=== PATIENT | male | born 1950 | race Caucasian/White ===

== ENCOUNTER 2016-08-02 21:24 | Inpatient (IN) | payer MEDICARE, OTHER ==
[~2016-08-02] VITALS: Ht 182.9 cm; Wt 80.1 kg
[2016-08-02 21:29] VITALS: BP 133/79; PULSE 89; RESP 18; TEMP 98.7; O2SAT 96
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
[2016-08-02] MEDS ORDERED: SODIUM CHLORIDE 0.9% FLUSH 5 ML FLUSH IVF PRN (21:45)
[2016-08-02] MEDS ORDERED: TETANUS/DIPHTHERIA TOXOID ADULT 0.5 ML VIAL IM ONE (22:15)
[2016-08-02] MEDS ORDERED: LIDOCAINE 1%/EPINEPHrine 1:100,000 SOLN 20 ML VIAL INFIL ONE (22:30)
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
[2016-08-02 23:02] LABS: AUTOMATED NEUTROPHIL # 10.1 TH/MM3 (1.8-7.7); BASOPHIL % 0.4 % (0.0-2.0); EOSINOPHIL # 0.1 TH/MM3 (0-0.4); EOSINOPHIL % 0.4 % (0.0-4.0); HEMATOCRIT 39.2 % (39.0-51.0); HEMO FLAGS DIFF FINAL; LYMPH % 13.1 % (9.0-44.0); LYMPHOCYTE # 1.7 TH/MM3 (1.0-4.8); MEAN CELL VOLUME 91.1 FL (80.0-100.0); MEAN CORPUSCULAR HEMOGLOBIN 31.6 PG (27.0-34.0); MEAN CORPUSCULAR HGB CONC 34.6 % (32.0-36.0); MONO % 5.5 % (0.0-8.0); NEUT % 80.6 % (16.0-70.0); PLATELET COUNT 209 TH/MM3 (150-450); RED CELL DISTRIBUTION WIDTH 14.1 % (11.6-17.2); WHITE BLOOD COUNT 12.6 TH/MM3 (4.0-11.0)
[2016-08-02 23:22] LABS: APTT (PATIENT) 26.6 SEC (24.3-30.1); PROTHROMBIN TIME - PATIENT 11.4 SEC (9.8-11.6)
[2016-08-02 23:31] LABS: BICARBONATE 29.5 MEQ/L (21.0-32.0); POTASSIUM 3.6 MEQ/L (3.5-5.1)
[2016-08-02] MEDS ORDERED: ONDANSETRON HCL 4 MG/2 ML VIAL IV PUSH ONE ×2 (23:45)
[2016-08-02] MEDS ORDERED: MORPHINE SULFATE 4 MG/ML INJ IV PUSH ONE (23:45)
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
[2016-08-03] MEDS ORDERED: ONDANSETRON HCL 4 MG/2 ML VIAL IVP PRN
[2016-08-03] MEDS ORDERED: BISACODYL 10 MG SUPP PR PRN
[2016-08-03] MEDS ORDERED: MORPHINE SULFATE 4 MG/ML INJ IV PRN
[2016-08-03] MEDS ORDERED: ACETAMINOPHEN 325 MG TAB PO PRN
[2016-08-03] MEDS ORDERED: SODIUM CHLORIDE 0.9% FLUSH 5 ML FLUSH FLUSH PRN
[2016-08-03] MEDS: SODIUM CHLOR 0.9% 1000 ML INJ 1,000 ML IV SCH ×4 (03:19→18:35)
[2016-08-03 06:30] LABS: AUTOMATED NEUTROPHIL # 14.3 TH/MM3 (1.8-7.7); BASOPHIL % 0.1 % (0.0-2.0); HEMO FLAGS DIFF FINAL; LYMPH % 6.7 % (9.0-44.0); LYMPHOCYTE # 1.1 TH/MM3 (1.0-4.8); MEAN CELL VOLUME 91.9 FL (80.0-100.0); MEAN CORPUSCULAR HEMOGLOBIN 31.6 PG (27.0-34.0); MEAN CORPUSCULAR HGB CONC 34.4 % (32.0-36.0); MONO % 4.6 % (0.0-8.0); NEUT % 88.6 % (16.0-70.0); PLATELET COUNT 231 TH/MM3 (150-450); RED BLOOD COUNT 3.92 MIL/MM3 (4.50-5.90); WHITE BLOOD COUNT 16.2 TH/MM3 (4.0-11.0)
[2016-08-03 07:12] LABS: ALKALINE PHOSPHATASE 74 U/L (45-117); ALT (GPT) 18 U/L (12-78); ANION GAP 6 MEQ/L (5-15); AST (GOT) 18 U/L (15-37); BICARBONATE 31.8 MEQ/L (21.0-32.0); BLOOD UREA NITROGEN 12 MG/DL (7-18); CHLORIDE 95 MEQ/L (98-107); GLOMERULAR FILTRATION RATE 79 ML/MIN (>89); POTASSIUM 3.4 MEQ/L (3.5-5.1); SODIUM (NA) 133 MEQ/L (136-145); TOTAL BILIRUBIN ADULT 0.6 MG/DL (0.2-1.0)
[2016-08-03] MEDS: SODIUM CHLORIDE 0.9% FLUSH 5 ML FLUSH FLUSH SCH ×2 (09:00→20:12)
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
[2016-08-03] MEDS ORDERED: PROPOFOL 200 MG/20 ML AMP IV ONE (11:17)
[2016-08-03] MEDS ORDERED: PHENYLEPH/NS 1000 MCG/10 ML SYR IV ONE (11:18)
[2016-08-03] MEDS ORDERED: LACTATED RINGER'S 1000 ML INJ 1,000 ML IV ONE (11:18)
[2016-08-03] MEDS ORDERED: ONDANSETRON HCL 4 MG/2 ML VIAL IV PUSH ONE (11:18)
[2016-08-03] MEDS ORDERED: ePHEDrine/NS 25 MG/5 ML SYR IV ONE (11:18)
[2016-08-03] MEDS ORDERED: LIDOCAINE 2%/EPINEPHrine 1:100,000 30ML MDV ONE (13:12)
[2016-08-03] MEDS ORDERED: BUPIVACAINE HCL PF 0.5% 30 ML VIAL ONE (13:12)
[2016-08-03] MEDS ORDERED: BACITRACIN TOP OINT 15 GM TUBE ONE (13:12)
[2016-08-03 13:49] VITALS: BP 124/69; PULSE 74; RESP 18; TEMP 98.3; O2SAT 97
[2016-08-03] MEDS ORDERED: MIDAZOLAM HCL 2 MG/2 ML VIAL ONE (16:45)
[2016-08-03] MEDS ORDERED: FAMOTIDINE 20 MG/2 ML VIAL ONE (16:45)
[2016-08-03] MEDS ORDERED: DEXAMETHASONE SOD PHOS 4 MG/ML VIAL ONE (16:45)
[2016-08-03] MEDS ORDERED: LIDOCAINE HCL 2% 50 ML VIAL ONE (16:55)
[2016-08-03] MEDS ORDERED: NEOMYCIN/POLYMYXIN 1 ML G.U. IRRIGANT XX ONE (17:17)
[2016-08-03] MEDS ORDERED: fentaNYL CITRATE 250 MCG/5 ML AMP ONE (17:19)
[2016-08-03] MEDS ORDERED: VANCOMYCIN HCL 1000 MG VIAL ONE (17:27)
[2016-08-03] MEDS ORDERED: CLINDAMYCIN PHOS 600 MG/4 ML VIAL ONE (17:27)
[2016-08-03 18:15] VITALS: BP 115/76; PULSE 73; RESP 22; TEMP 97; O2SAT 100
--- NOTE | 2016-08-03 18:24 | PD.ORT.PN ---
Subjective Subjective Remarks Pain controlled Objective Vitals Vital Signs Date Time Temp Pulse Resp B/P Pulse Ox O2 Delivery O2 Flow Rate FiO2 08/03/16 13:49 98.3 74 18 124/69 97 Room Air 08/03/16 13:00 Room Air 08/02/16 22:41 Room Air 08/02/16 21:29 98.7 89 18 133/79 96 Result Diagram: 08/03/16 0608 08/03/16 0608 Other Results Laboratory Tests Test 08/02/16 22:30 Prothrombin Time 11.4 SEC (9.8-11.6) Prothromb Time International 1.0 RATIO Ratio Imaging Last [address] 08/02/162138 Signed Impressions: Service Date/Time: July 22:12 - CONCLUSION: Negative noncontrast head CT. Oniel Toledo MD Chest X-Ray 08/02/162138 Signed Impressions: Service Date/Time: July 22:01 - CONCLUSION: No evidence of acute cardiopulmonary disease. Oniel Toledo MD Cervical Spine CT 08/02/162138 Signed Impressions: Service Date/Time: July 22:13 - CONCLUSION: No fracture or subluxation seen of the cervical spine. Oniel Toledo MD Objective Remarks dressing in place, able to wiggle fingers Assessment & Plan Assessment and Plan POD0 s/p I&D right small finger and revision amputation right small finger -Ok to discharge per hand surgery -Gentle ROM right hand Maggie Vitale MD Aug 03, 2016 18:24
[2016-08-03] MEDS: ACETAMINOPHEN/HYDROcodone 325 MG/5 MG TAB PO PRN (20:26)
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
[2016-08-03 22:02] VITALS: O2SAT 96
[2016-08-04] VITALS: BP 94/55; PULSE 82; RESP 20; TEMP 97.8; O2SAT 100
[2016-08-04 04:00] VITALS: BP 103/57; PULSE 76; RESP 20; TEMP 97.8; O2SAT 96
[2016-08-04 08:00] VITALS: BP 96/59; PULSE 76; RESP 18; TEMP 97; O2SAT 95
[2016-08-04] MEDS: ACETAMINOPHEN/HYDROcodone 325 MG/5 MG TAB PO PRN (09:16)
[2016-08-04] MEDS: SODIUM CHLORIDE 0.9% FLUSH 5 ML FLUSH FLUSH SCH (09:17)
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
--- NOTE | 2016-08-04 16:36 | EKG ---
Date Performed: 08/03/2016 Time Performed: 15:46:20 PTAGE: 65 years EKG: Sinus rhythm NORMAL ECG NO PREVIOUS TRACING DOCTOR: Jeffrey Olivera Interpretating Date/Time 08/04/2016 16:36:06
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
== END 2016-08-04 09:57 | disposition left against medical advice (07) | DRG 906 ==
LOC: NEPC 21:24 → NEDA 23:38 → NEDH 08-03 03:40 → NEDA 08-03 12:22 → N06A 08-03 19:13
PROVIDERS: ADMIT Family Medicine; ATTEND Family Medicine
PROC: 0HQ0XZZ Repair Scalp Skin, External Approach (ICD-10-PCS; 2016-08-02)
PROC: 3E0T3CZ (ICD-10-PCS; 2016-08-03)
PROC: 0X6V0Z3 Detachment at Right Little Finger, Low, Open Approach (ICD-10-PCS; principal; 2016-08-03 16:49)
DX: S68.126A Partial traumatic metacarpophalangeal amputation of right little finger, initial encounter (principal); D72.829 Elevated white blood cell count, unspecified; S01.01XA Laceration without foreign body of scalp, initial encounter; S40.811A Abrasion of right upper arm, initial encounter; S80.01XA Contusion of right knee, initial encounter; S40.812A Abrasion of left upper arm, initial encounter; K21.9 Gastro-esophageal reflux disease without esophagitis; F12.90 Cannabis use, unspecified, uncomplicated; V28.4XXA Motorcycle driver injured in noncollision transport accident in traffic accident, initial encounter; Y92.410 Unspecified street and highway as the place of occurrence of the external cause; Z72.0 Tobacco use; Z88.0 Allergy status to penicillin
CPT/HCPCS: 12002; 70450; 71010; 72125; 72170; 73130; 73552; 73564; 80048; 80053; 85025; 85610; 85730; 86850; 86900; 86901; 93005; 96365; J0690; J1100; J2250; J2270; J2370; J2405; J3010; J3370; J7030; J7120